=== PATIENT | female | born 1990 | race Caucasian/White ===

== ENCOUNTER 2019-01-03 14:49 | Inpatient (IN) | payer MEDICAID ==
[~2019-01-03] VITALS: Ht 157.5 cm; Wt 98.9 kg
[2019-01-03] MEDS ORDERED: DEXT 5%/LR + PITOCIN 20UNITS/L 1,000 ML IV SCH (15:42)
[2019-01-03] MEDS ORDERED: MISOPROSTOL 100MCG TABLET VG SCH (15:45)
[2019-01-03] MEDS ORDERED: NALOXONE HCL 0.4 MG/ML 1ML VIAL IM PRN (15:45)
[2019-01-03] MEDS ORDERED: CARBOPROST TROMETHAMINE 250 MCG/ML AMPUL IM PRN (15:45)
[2019-01-03] MEDS ORDERED: METHYLERGONOVINE MALEATE 0.2 MG/ML IM PRN (15:45)
[2019-01-03] MEDS: LACTATED RINGERS 1,000 ML IV SCH ×2 (16:17→18:41)
[2019-01-03 16:36] LABS: CLARITY URINE CLOUDY (CLEAR); COLOR URINE YELLOW (YELLOW); KETONES URINE TRACE (NEGATIVE); LEUKOCYTE ESTERASE URINE 1+ (NEGATIVE); NITRITE URINE NEGATIVE (NEGATIVE); OCCULT BLOOD URINE NEGATIVE (NEGATIVE); PROTEIN URINE NEGATIVE (NEGATIVE); SPECIFIC GRAVITY URINE 1.016 (1.005-1.030); UROBILINOGEN URINE 0.2 E.U./dL (0.2-1.0)
[2019-01-03 16:37] LABS: BASOPHILS % 0.4 % (0.0-2.0); EOSINOPHILS % 0.2 % (0.0-5.0); HEMOGLOBIN. 12.1 g/dL (12.0-16.0); LYMPHOCYTES % 16.8 % (20.0-50.0); MEAN CORPUSCULAR HEMOGLOBIN 30.9 pg (28.0-32.0); MEAN CORPUSCULAR VOLUME 89.7 fL (81.0-99.0); MEAN PLATELET VOLUME 9.8 fl (7.4-10.4); MONOCYTES % 5.3 % (2.0-8.0); NEUTROPHILS % 77.3 % (40.0-76.0); PLATELET 259 x1000/uL (130-400); RED BLOOD CELL COUNT 3.91 mill/uL (4.2-5.4); RED CELL DISTRIBUTION WIDTH 13.7 % (11.6-14.6)
[2019-01-03 16:42] LABS: PARTIAL THROMBOPLASTIN TIME 35.6 sec (23.4-31.0); PROTHROMBIN TIME 9.8 sec (9.6-11.0)
[2019-01-03 16:51] LABS: *AMPHETAMINES SCREEN URINE NEGATIVE (NEGATIVE); *BARBITURATES SCREEN URINE NEGATIVE (NEGATIVE); *COCAINE SCREEN URINE NEGATIVE (NEGATIVE); METHADONE URINE SCREEN NEGATIVE (NEGATIVE); OPIATES URINE SCREEN NEGATIVE (NEGATIVE)
[2019-01-03 16:52] LABS: *BENZODIAZEPINES SCREEN URINE NEGATIVE (NEGATIVE); CANNABINOID URINE SCREEN NEGATIVE (NEGATIVE); PHENCYCLIDINE URINE SCREEN NEGATIVE (NEGATIVE)
[2019-01-03] MEDS ORDERED: CITRIC ACID/SODIUM CITRATE SOLN 30ML UDC PO NR (17:15)
[2019-01-03 17:17] LABS: HEPATITIS B SURFACE ANTIGEN NEGATIVE
[2019-01-03] MEDS ORDERED: OXYTOCIN 10 UNITS/ML 1ML ONE ×2 (19:16→20:35)
[2019-01-03] MEDS ORDERED: MORPHINE SULFATE/PF 1MG/ML 10ML AMP ONE (19:16)
[2019-01-03] MEDS ORDERED: EPHEDRINE SULFATE 50MG/ML VIAL ONE (19:16)
[2019-01-03] MEDS ORDERED: FENTANYL CITRATE/PF 50MCG/ML 2ML VIAL ONE (19:16)
[2019-01-03] MEDS ORDERED: CEFAZOLIN SODIUM 1000MG/VIAL ONE (19:17)
[2019-01-03] MEDS ORDERED: ONDANSETRON HCL 4MG/2ML INJ ONE (19:17)
[2019-01-03] MEDS ORDERED: METOCLOPRAMIDE HCL 10MG/2ML VIAL ONE (19:17)
[2019-01-03] MEDS ORDERED: PHENYLEPHRINE HCL 10 MG/ML 1ML (IV VIAL) IV ONE (19:17)
[2019-01-03] MEDS ORDERED: MEPERIDINE HCL/PF 25MG/ML CPJ IV PRN (21:15)
[2019-01-03] MEDS ORDERED: ONDANSETRON HCL 4MG/2ML INJ IV PRN (21:15)
[2019-01-03] MEDS ORDERED: KETOROLAC 30MG/ML VIAL IV PRN (21:15)
[2019-01-03] MEDS ORDERED: DIPHENHYDRAMINE 50MG/ML VIAL IV PRN (21:15)
[2019-01-03] MEDS ORDERED: METOCLOPRAMIDE HCL 10MG/2ML VIAL IV PRN (21:15)
[2019-01-03] MEDS ORDERED: RHO(D) IMMUNE GLOBULIN 300 MCG/SYR IM PRN (21:30)
[2019-01-03] MEDS ORDERED: IBUPROFEN 400MG TABLET PO PRN (21:30)
[2019-01-03] MEDS ORDERED: BISACODYL 10MG SUPP PR PRN (21:30)
[2019-01-03] MEDS ORDERED: HYDROMORPHONE HCL/PF 2MG/ML CPJ IM PRN (21:30)
[2019-01-03] MEDS: DEXT 5%/LR + PITOCIN 20UNITS/L 1,000 ML IV SCH (21:53)
[2019-01-03 23:15] VITALS: BP 95/58
[2019-01-04 00:30] VITALS: BP 97/59
[2019-01-04] MEDS: DEXT 5%/LR + PITOCIN 20UNITS/L 1,000 ML IV SCH (05:18)
[2019-01-04 06:00] VITALS: BP 99/61
[2019-01-04 06:59] LABS: BASOPHILS % 0.2 % (0.0-2.0); HEMOGLOBIN. 10.4 g/dL (12.0-16.0); LYMPHOCYTES % 8.6 % (20.0-50.0); MEAN CORPUSCULAR HEMOGLOBIN 31.3 pg (28.0-32.0); MEAN CORPUSCULAR VOLUME 90.5 fL (81.0-99.0); MEAN PLATELET VOLUME 9.7 fl (7.4-10.4); MONOCYTES % 6.4 % (2.0-8.0); NEUTROPHILS % 84.8 % (40.0-76.0); PLATELET 234 x1000/uL (130-400); RED BLOOD CELL COUNT 3.32 mill/uL (4.2-5.4); RED CELL DISTRIBUTION WIDTH 13.8 % (11.6-14.6)
[2019-01-04 07:46] VITALS: BP 90/51
[2019-01-04 16:05] VITALS: BP 90/53
[2019-01-04] MEDS: IBUPROFEN 800MG TABLET PO PRN (16:34)
[2019-01-04 23:41] VITALS: BP 99/59
[2019-01-05 05:56] VITALS: BP 96/56
[2019-01-05 08:05] VITALS: BP 92/51
[2019-01-05] MEDS: IBUPROFEN 800MG TABLET PO PRN (09:10)
[2019-01-05 16:05] VITALS: BP 95/57
[2019-01-05 20:00] VITALS: BP 104/53
[2019-01-06 04:00] VITALS: BP 95/54
[2019-01-06 08:00] VITALS: BP 109/68
[2019-01-06] MEDS: IBUPROFEN 800MG TABLET PO PRN (10:06)
== END 2019-01-06 11:50 | disposition home or self-care (01) | DRG 540 ==
LOC: OBSVTOIN 14:49 → 8 EST LDRP 14:49 → 8EST 23:15
PROVIDERS: ADMIT Obstetrics & Gynecology; ATTEND Obstetrics & Gynecology
PROC: 10D00Z1 Extraction of Products of Conception, Low, Open Approach (ICD-10-PCS; principal; 2019-01-03)
PROC: 0UB70ZZ Excision of Bilateral Fallopian Tubes, Open Approach (ICD-10-PCS; 2019-01-03)
DX: O34.211 Maternal care for low transverse scar from previous cesarean delivery (principal); O77.0 Labor and delivery complicated by meconium in amniotic fluid; Z37.0 Single live birth; Z3A.40 40 weeks gestation of pregnancy; Z30.2 Encounter for sterilization
CPT/HCPCS: 36415; 80305; 86592; 86703; 86762; 86850; 86900; 86920; 87340; 88302; 88307; J0690; J2274; J2370; J2405; J2590; J2765; J3010; J3490; A4315